=== PATIENT | female | born 1950 | race Caucasian/White ===

== ENCOUNTER → 2016-12-30 | Outpatient (CLI) | payer MEDICARE ==
--- NOTE | 2016-12-30 13:45 | KCIC ---
MRI left shoulder without contrast dated 12/30/2016 12:30 PM Indication: Left shoulder pain , pain for several months .. Comparison: No comparison is available. Technique: Routine multiplanar multisequence imaging performed. . Findings: Intermediate T2 signal throughout the supraspinatus and infraspinatus portions of the rotator cuff. There is a small full-thickness tear versus high-grade partial tear of the anterior supraspinatus footplate that measures up to 9 mm AP dimension. No significant cuff retraction. The infraspinatus and subscapularis are intact. Mild hypertrophic change of the acromioclavicular joint. No significant undersurface spurring. The acromium is type II morphology. Small amount of subacromial/subdeltoid bursal fluid. Mild increased signal within the substance of the long head biceps tendon proximally. Extra articular portion courses within the bicipital groove. Biceps anchor intact. Mild hypertrophic trophic change of the glenohumeral joint. No full-thickness cartilage defect. No joint effusion or loose body. Blunted morphology of the posterior labrum. No discrete labral tear or para labral cyst. Suprascapular and spinoglenoid notches are clear. No significant muscle edema or muscle atrophy. IMPRESSION: 1. Rotator cuff tendinopathy with small rim-rent full-thickness tear versus high-grade partial-thickness tear of the anterior supraspinatus footplate. No significant cuff retraction. 2. Mild AC joint arthropathy 3. Mild biceps tendinosis. 4. 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 There is mild degenerative fraying of the posterior labrum. Electronically signed by: Liam Salvador MD (12/30/2016 1:42 PM) [id number]
== END | disposition home or self-care (01) ==
LOC: KCIC MRI 12:30
PROVIDERS: ATTEND Orthopaedic Surgery
DX: M19.012 Primary osteoarthritis, left shoulder (principal); M94.212 Chondromalacia, left shoulder
CPT/HCPCS: 73221